=== PATIENT | male | born 1955 ===

== ENCOUNTER 2024-01-14 04:34 | Day surgery (SDC) | payer OTHER, BC ==
[2024-01-06 12:53] VITALS: BMI 26.4
[2024-01-14] MEDS ORDERED: CEFAZOLIN 2 GM in DEXTROSE 5%-WATER - 50 ML IVPB ONE (06:12)
[2024-01-14] MEDS ORDERED: ceFAZolin SODIUM 1 GM VIAL ONE ×2 (06:14→07:35)
[2024-01-14] MEDS: ceFAZolin SODIUM 1 GM VIAL IVPB ONE (07:20)
[2024-01-14] MEDS: BUPIVACAINE HCL/PF 0.5% (5MG/ML) 10 ML VIAL IJ ONE ×3 (07:20→08:46)
[2024-01-14] MEDS ORDERED: BUPIVACAINE HCL/PF 0.5% (5MG/ML) 10 ML VIAL ONE (07:25)
[2024-01-14] MEDS ORDERED: METOCLOPRAMIDE HCL INJECTION 10 MG/2 ML VIAL ONE (07:35)
[2024-01-14] MEDS ORDERED: KETOROLAC TROMETHAMINE 30 MG/1 ML VIAL ONE (07:35)
[2024-01-14] MEDS ORDERED: SODIUM CHLORIDE 0.9% P/F 10 ML VIAL IJ ONE (07:35)
[2024-01-14] MEDS ORDERED: ONDANSETRON 4 MG/2 ML VIAL ONE (07:35)
[2024-01-14] MEDS ORDERED: DEXAMETHASONE SOD PHOSPHATE 4 MG/1 ML VIAL ONE (07:35)
[2024-01-14] MEDS ORDERED: LIDOCAINE HCL/PF 2% SDV 5ML VIAL ONE (07:35)
[2024-01-14] MEDS ORDERED: ACETAMINOPHEN INJECTION 100 ML IVPB ONE (07:39)
[2024-01-14] MEDS ORDERED: ROCURONIUM BROMIDE 50 MG/5 ML SYRINGE ONE ×2 (07:42→08:39)
[2024-01-14] MEDS ORDERED: PROPOFOL 40 ML ONE (07:42)
[2024-01-14] MEDS ORDERED: MIDAZOLAM HCL 2 MG/2 ML SINGLE DOSE VIAL ONE (07:43)
[2024-01-14] MEDS ORDERED: CLINDAMYCIN PHOSPHATE 600 MG/4 ML VIAL ONE (08:10)
[2024-01-14] MEDS ORDERED: HYDROmorphone HCl 2 MG/ML VIAL ONE (08:11)
[2024-01-14] MEDS: CLINDAMYCIN 600 MG PREMIX BAG IVPB ONE (08:17)
[2024-01-14] MEDS ORDERED: ONDANSETRON 4 MG/2 ML VIAL IVPUSH PRN (08:59)
[2024-01-14] MEDS ORDERED: oxyCODONE HCL 5 MG TABLET PO PRN (08:59)
[2024-01-14] MEDS ORDERED: LACTATED RINGERS SOLUTION 1,000 ML IV SCH (09:00)
[2024-01-14] MEDS ORDERED: SUGAMMADEX SODIUM 200 MG/2 ML VIAL ONE (09:58)
[2024-01-14 11:38] VITALS: PULSE 61
[2024-01-14 12:45] VITALS: BP 117/76; RESP 24; TEMP 97.8
== END 2024-01-14 13:00 | disposition home or self-care (01) ==
LOC: JASU-SURG 04:34
PROVIDERS: ATTEND Surgery
PROC: 8E0W4CZ Robotic Assisted Procedure of Trunk Region, Percutaneous Endoscopic Approach (ICD-10-PCS; 2024-01-14)
PROC: 0YU54JZ Supplement Right Inguinal Region with Synthetic Substitute, Percutaneous Endoscopic Approach (ICD-10-PCS; principal; 2024-01-14 08:00)
DX: K40.90 Unilateral inguinal hernia, without obstruction or gangrene, not specified as recurrent (principal)
CPT/HCPCS: 49650; S2900; 86850; 86900; 86901; 94760; C1781; J0131